=== PATIENT | female | born 1955 | race Caucasian/White ===

== ENCOUNTER 2020-11-08 11:42 | Emergency (ER) | payer MEDICARE, MEDICAID ==
[~2020-11-08] VITALS: Ht 160 cm; Wt 60.0 kg
[2020-11-08 11:53] VITALS: BP 128/70
[2020-11-08] MEDS ORDERED: KETOROLAC 30 MG/1 ML IVPush ONE (12:00)
[2020-11-08] MEDS ORDERED: KETOROLAC 30 MG/1 ML ONE (12:21)
--- NOTE | 2020-11-08 12:47 | NUR ---
"My pain is improved to 01/20." Provided to taxi voucher for ride back to rehab Educated on erp diagnosis and what to watch for
== END 2020-11-08 12:50 | disposition home or self-care (01) ==
LOC: ED 12:31
DX: M79.18 Myalgia, other site (principal); M54.5 Low back pain; I10 Essential (primary) hypertension; J44.9 Chronic obstructive pulmonary disease, unspecified; M19.90 Unspecified osteoarthritis, unspecified site
CPT/HCPCS: 96374; 99283; J1885